=== PATIENT | female | born 1935 ===

== ENCOUNTER 2017-08-07 16:36 | Emergency (ER) | payer MEDICARE, MEDICAID ==
[2017-08-07 16:47] VITALS: BP 141/63; PULSE 76; RESP 16; TEMP 97.5; O2SAT 98
--- NOTE | 2017-08-07 18:13 | ED PDOC ---
HPI: Back Time Seen by Provider: 08/07/17 16:53 Chief Complaint (Nursing): Back Pain Chief Complaint (Provider): Back Pain History Per: Patient History/Exam Limitations: no limitations Onset/Duration Of Symptoms: Days (x4) Current Symptoms Are (Timing): Still Present Pain Scale Rating Of: 9 Additional Complaint(s): 81 y/o female with a past medical history of HTN and diabetes, who presents to the ED for evaluation of diffuse upper back pain, b/l shoulder pain, and neck pain x4 days. States pain began Monday. Denies any recent falls or trauma, and states the pain has gradually been worsening. Reports back in June of this year, she fell in the snow and was evaluated for left ankle pain and b/l knee pain at that time. States she was given Neurontin for her pain, as her imaging was all normal. Reports shes been taking Neurontin 600mg 3 times daily for her current pain in her back and neck without relief. States pain is worse with movement, sometimes radiates into the upper extremities, and is currently 9/10. States the pain hasnt been relieved by topical or home remedies as well. States she called her PMDs office, Dr. Ibarra, who advised she present to the ED for evaluation. Denies fever, cough, chest pain, recent travel, lower extremity swelling, calf pain, abdominal pain, vomiting, headache, or sick contacts. PMD: Dr. Ibarra Past Medical History Reviewed: Historical Data, Nursing Documentation, Vital Signs Vital Signs: Last Vital Signs Temp 97.5 F L 08/07/17 16:44 Pulse 76 08/07/17 16:44 Resp 16 08/07/17 16:44 BP 141/63 08/07/17 16:44 Pulse Ox 98 08/07/17 16:44 - Medical History PMH: Anxiety, Asthma, Bronchitis, CAD, COPD, Depression, Diabetes, Gastritis, HTN, Osteoporosis Denies: HIV, Chronic Kidney Disease - Surgical History Other surgeries: Left ankle, right knee - Family History Family History: States: Unknown Family Hx - Social History Current smoker - smoking cessation education provided: No Alcohol: None Drugs: Denies - Home Medications Home Medications: Ambulatory Orders Medication Instructions Recorded Ascorbic Acid [Vitamin C] 500 mg PO QPM 10/17/14 Biotin [Meribin] 5,000 mcg PO DAILY 10/17/14 Budesonide/Formoterol Fumarate 2 puff IH Q12H 10/17/14 [Symbicort 80-4.5 Mcg Inhaler] Cholecalciferol (Vitamin D3) 10,000 unit PO DAILY 10/17/14 [Maximum D3] Clopidogrel [Plavix] 75 mg PO DAILY 10/17/14 Conjugated Estrogens [Premarin] 0.625 mg PO HS 10/17/14 Cyanocobalamin [Vitamin B12] 5,000 mcg PO DAILY 10/17/14 Diclofenac Sodium [Voltaren Gel] 1 appl TOP QID PRN 10/17/14 Dorzolamide 2%/Timolol 0.5% 1 drop EACHEYE BID 10/17/14 [Cosopt 2%-0.5% Opht] Esomeprazole Magnesium [Nexium] 40 mg PO DAILY 10/17/14 Fluticasone Propionate [Flonase] 1 spray SUSAN BID PRN 10/17/14 Glimepiride 1 mg PO DAILY 10/17/14 Hydrochlorothiazide/Valsarta 1 tab PO DAILY 10/17/14 [Diovan Hct 12.5 mg-80 mg] Levocetirizine Dihydrochlori 5 mg PO DAILY 10/17/14 [Xyzal] Levothyroxine [Synthroid] 25 mg PO MWF 10/17/14 Montelukast [Singulair] 10 mg PO DAILY 10/17/14 Multivitamin/Iron/Folic Acid 1 tab PO QPM 10/17/14 [Centrum Complete Multivit Tab] Oxycodone HCl/Acetaminophen 1 tab PO Q4H PRN 10/17/14 [Percocet 5-325 mg Tablet] Polyethylene Glycol 3350 [Miralax] 17 gm PO DAILY PRN 10/17/14 Zolpidem Tartrate [Ambien] 10 mg PO HS PRN 10/17/14 Levofloxacin [Levaquin] 500 mg PO DAILY 10/22/14 predniSONE [predniSONE Tab] 5 mg PO DAILY #21 tab 10/24/14 - Allergies Allergies/Adverse Reactions: Allergies Allergy/AdvReac Type Severity Reaction Status Date / Time aspirin Allergy RASH Verified 08/07/17 17:40 metformin Allergy RASH Verified 08/07/17 17:40 Tetanus Vaccines and Toxoid Allergy RASH Verified 08/07/17 17:40 Review of Systems ROS Statement: Except As Marked, All Systems Reviewed And Found Negative Constitutional: Negative for: Fever Cardiovascular: Negative for: Chest Pain Respiratory: Negative for: Cough Musculoskeletal: Positive for: Neck Pain, Shoulder Pain, Back Pain Physical Exam - Reviewed Nursing Documentation Reviewed: Yes Vital Signs Reviewed: Yes - Physical Exam Comments: GENERAL APPEARANCE: Patient is awake, alert, oriented x 3, in no acute distress , and ambulatory in ED with cane. SKIN: Warm, dry; (-) cyanosis. EYES: (-) conjunctival pallor. ENMT: Mucous membranes moist. NECK: Supple (+) midline tenderness to cervical spine, decreased ROM secondary to pain CHEST AND RESPIRATORY: (-) rales, (-) rhonchi, (-) wheezes; breath sounds equal bilaterally. HEART AND CARDIOVASCULAR: (-) irregularity; (-) murmur, (-) gallop. ABDOMEN AND GI: Soft; (-) tenderness; (-) palpable mass. BACK: (+) diffuse bilateral parathoracic tenderness, (+) diffuse bilateral posterior shoulder tenderness, (+) diffuse bilateral trapezius tenderness, (-) direct bony tenderness, (-) deformity. EXTREMITIES: (-) deformity. Distal pulses good bilaterally. NEURO AND PSYCH: Mental status as above. Intact sensation bilaterally; leave coordinator strength is equal. Cerebellar tests intact. community affairs manager grossly intact. - ECG O2 Sat by Pulse Oximetry: 98 (RA) Pulse Ox Interpretation: Normal Medical Decision Making Medical Decision Making: Time: 17:46 Initial Impression: Acute neck and back pain Plan: --Spoke with Dr. Ibarra on the phone, who states he will come see the patient in the ED within the next [address] of the neck in the meantime. --Cervical Spine CT --EKG --CXR --Ultram 50mg PO --Reevaluation --EKG: sinus rhythm 70 bpm, occasional PVC, no ST elevations, QTc 423. Time: 18:50 CXR: NAD as read by Jazzmine ALEXANDRA and Dr Ibarra CT reviewed, radiology report follows PROCEDURE: CT scan of the cervical spine dated 08/07/2017 HISTORY: Neck and back pain. COMPARISON: Comparison made with prior CT scan of the cervical spine 07/03/2013 TECHNIQUE: contiguous helical/ transaxial computed tomography images were obtained of the cervical spine without the use of intravenous contrast. Coronal and sagittal reformatted images were created and reviewed. Radiation dose: Total exam DLP = 535.96 mGy-cm. This CT exam was performed using one or more of the following dose reduction techniques: Automated exposure control, adjustment of the mA and/or kV according to patient size, and/or use of iterative reconstruction technique. FINDINGS: VERTEBRAE: No evidence of acute displaced fracture nor dislocation. The osseous structures intact. . There is slight anterior subluxation C6 over C7. Straightening of the normal cervical lordosis also noted which may be due to patient positioning in the gantry however underlying element of muscle spasm may contribute bold DISCS/SPINAL CANAL/NEURAL FORAMINA: Mild multilevel degenerative spondylosis of the cervical spine again noted. At the C2-C3 level, there is relatively adequate disc height. No disc herniation or significant disc bulge. The facets are slightly prominent. Central canal and exit foramina adequate. At the C3-C4 level, there is disc space narrowing more so along the anterior disc margin. Small osteophytic ridge disc bulge complex some minimally flattens the ventral surface of the thecal sac though does not appear to cause significant canal compromise nor cord compression. Exit foramina appear marginal to slightly narrowed. At the C4-C5 level, there is relatively adequate disc height. Small central and bilateral disc bulge indents the ventral surface of the thecal sac. Central canal is marginal. There may be some minimal flattening of the ventral surface of the thecal sac. Mild degenerative squaring of the uncovertebral joints. Facets also slightly overgrown. Exit foramina appear adequate. At the C5-C6 level, there is adequate disc height. No disc herniation or significant disc bulge. The facet joints are slightly hypertrophic. Central canal and exit foramina appear adequate. At the C6-C7 level, there is disc space narrowing with small central and bilateral osteophytic ridge disc bulge complex that also appears to flatten the ventral surface of the thecal sac and may reach the ventral surface of the cord. Central canal appears adequate. Exit foramina are narrowed on the right and adequate on the left due to mild hypertrophic uncovertebral and facet joints. Slight anterior subluxation C6 over C7 PARASPINAL SOFT TISSUES: Unremarkable. OTHER FINDINGS: None. IMPRESSION: Unremarkable CT of the cervical spine. Time: 18:57 Dr. Ibarra at bedside. Time: 20:[address] Ibarra, patient stable for discharge. Dr Ibarra states he will give patient Rx for pain and to have her follow up outpatient. Dr Ibarra states no further intervention is needed in ED setting. On re-evaluation, patient reports improvement of symptoms. On exam, patient remains AAOx3, in no acute distress. Lungs clear to auscultation, cardiac RRR, abdomen soft, non-tender, repeat neuro exam shows no focal findings. VSS. Lab/Diagnostic results d/w the patient in great detail. Diagnosis of acute neck and back pain, radicular pain, DJD d/w the patient. Based on history, exam and diagnostic results, plan will be for outpatient follow up. Patient instructed to follow-up with pmd / referral provided / the clinic in 1- 2 days without fail. Advised to take medication as prescribed from PMD. Return to the emergency room at any time for any new or worsening symptoms. Patient states she fully agrees with and understands discharge instructions. States that she agrees with the plan and disposition. Verbalized and repeated discharge instructions and plan. I have given the patient opportunity to ask any additional questions. Scribe Attestation: Documented by Poli Carmona, acting as a scribe for Aicha Dover PA-C. Provider Scribe Attestation: All medical record entries made by the Scribe were at my direction and personally dictated by me. I have reviewed the chart and agree that the record accurately reflects my personal performance of the history, physical exam, medical decision making, and the department course for this patient. I have also personally directed, reviewed, and agree with the discharge instructions and disposition. Disposition - Clinical Impression Clinical Impression: Back pain, Neck pain, Radicular pain, Degenerative cervical disc - Patient ED Disposition Is Patient to be Admitted: No Counseled Patient/Family Regarding: Studies Performed, Diagnosis, Need For Followup - Disposition Referrals: Aldo Ibarra MD [Family Provider] - Disposition: Routine/Home Disposition Time: 20:13 Condition: STABLE Instructions: Degenerative Disc Disease, Radiculopathy, Neck Pain, Upper Back Pain Forms: [facility] (Hebrew) Print Language: SAUDI ARABIAN
--- NOTE | 2017-08-07 18:48 | CT ---
PROCEDURE: CT scan of the cervical spine dated 08/07/2017 HISTORY: Neck and back pain. COMPARISON: Comparison made with prior CT scan of the cervical spine 07/03/2013 TECHNIQUE: contiguous helical/ transaxial computed tomography images were obtained of the cervical spine without the use of intravenous contrast. Coronal and sagittal reformatted images were created and reviewed. Radiation dose: Total exam DLP = 535.96 mGy-cm. This CT exam was performed using one or more of the following dose reduction techniques: Automated exposure control, adjustment of the mA and/or kV according to patient size, and/or use of iterative reconstruction technique. FINDINGS: VERTEBRAE: No evidence of acute displaced fracture nor dislocation. The osseous structures intact. . There is slight anterior subluxation C6 over C7. Straightening of the normal cervical lordosis also noted which may be due to patient positioning in the gantry however underlying element of muscle spasm may contribute bold DISCS/SPINAL CANAL/NEURAL FORAMINA: Mild multilevel degenerative spondylosis of the cervical spine again noted. At the C2-C3 level, there is relatively adequate disc height. No disc herniation or significant disc bulge. The facets are slightly prominent. Central canal and exit foramina adequate. At the C3-C4 level, there is disc space narrowing more so along the anterior disc margin. Small osteophytic ridge disc bulge complex some minimally flattens the ventral surface of the thecal sac though does not appear to cause significant canal compromise nor cord compression. Exit foramina appear marginal to slightly narrowed. At the C4-C5 level, there is relatively adequate disc height. Small central and bilateral disc bulge indents the ventral surface of the thecal sac. Central canal is marginal. There may be some minimal flattening of the ventral surface of the thecal sac. Mild degenerative squaring of the uncovertebral joints. Facets also slightly overgrown. Exit foramina appear adequate. At the C5-C6 level, there is adequate disc height. No disc herniation or significant disc bulge. The facet joints are slightly hypertrophic. Central canal and exit foramina appear adequate. At the C6-C7 level, there is disc space narrowing with small central and bilateral osteophytic ridge disc bulge complex that also appears to flatten the ventral surface of the thecal sac and may reach the ventral surface of the cord. Central canal appears adequate. Exit foramina are narrowed on the right and adequate on the left due to mild hypertrophic uncovertebral and facet joints. Slight anterior subluxation C6 over C7 PARASPINAL SOFT TISSUES: Unremarkable. OTHER FINDINGS: None. IMPRESSION: Unremarkable CT of the cervical spine.
--- NOTE | 2017-08-08 08:32 | RAD ---
HISTORY: COMPARISON: 10/17/2014. TECHNIQUE: Chest PA and lateral FINDINGS: LINES AND TUBES: None. LUNG AND PLEURA: The lungs are well inflated and clear. HEART AND MEDIASTINUM: The heart size is top normal. The hilar and mediastinal contours are within normal limits. SKELETAL STRUCTURES: The bony structures are within normal limits for the patient's age. VISUALIZED UPPER ABDOMEN: Normal. OTHER FINDINGS: None. IMPRESSION: No active pulmonary disease.
--- NOTE | 2017-08-08 11:43 | CARD ---
APPROVED REPORT EKG Measurement Heart [id number] HI [id number] <Conclusion> Sinus rhythm with occasional premature ventricular complexes Possible Left atrial enlargement Left ventricular hypertrophy Abnormal ECG
== END 2017-08-07 20:45 | disposition home or self-care (01) ==
LOC: H.ER 16:36
DX: M54.9 Dorsalgia, unspecified (principal); M54.2 Cervicalgia; M81.0 Age-related osteoporosis without current pathological fracture; I25.10 Atherosclerotic heart disease of native coronary artery without angina pectoris; E11.9 Type 2 diabetes mellitus without complications; I49.3 Ventricular premature depolarization

== ENCOUNTER 2018-07-09 00:23 | Emergency (ER) | payer MEDICARE, MEDICAID ==
[2018-07-09 00:45] VITALS: RESP 18
[2018-07-09] MEDS ORDERED: Sodium Chloride 0.9% 1,000 ML IV STA (01:04)
--- NOTE | 2018-07-09 01:55 | ED PDOC ---
HPI: Abdomen Time Seen by Provider: 07/09/18 00:40 Chief Complaint (Nursing): GI Problem Chief Complaint (Provider): GI Problem History Per: Patient History/Exam Limitations: no limitations Additional Complaint(s): 82 y/o female with history of COPD, HTN, diabetes, hypothyroidism and carotid stenosis presents to the ED complaining of subjective fever associated with nausea, vomiting and headache, onset x1 day ago. Patient was seen on Monday at [facility] and was diagnosed with right ear otitis media. Patient was discharged with Amoxicillin however she reports that made her vomit and feel dizzy. Patient was then given Clindomycin but she still had nausea, vomiting, body aches. Patient states she has additionally developed headache and right-sided facial pain. Past Medical History Reviewed: Historical Data, Nursing Documentation, Vital Signs Vital Signs: Last Vital Signs Temp 98 F 07/09/18 00:36 Pulse 80 07/09/18 00:36 Resp 18 07/09/18 00:36 BP 108/50 L 07/09/18 00:36 Pulse Ox 99 07/09/18 00:36 - Medical History PMH: Anxiety, Asthma, Bronchitis, CAD, COPD, Depression, Diabetes, Gastritis, HTN, Hypothyroidism, Osteoporosis Denies: HIV, Chronic Kidney Disease - Surgical History Surgical History: Back Surgery Other surgeries: Knee surgery - Family History Family History: States: Unknown Family Hx - Home Medications Home Medications: Ambulatory Orders Medication Instructions Recorded Ascorbic Acid [Vitamin C] 500 mg PO QPM 10/17/14 Biotin [Meribin] 5,000 mcg PO DAILY 10/17/14 Budesonide/Formoterol Fumarate 2 puff IH Q12H 10/17/14 [Symbicort 80-4.5 Mcg Inhaler] Cholecalciferol (Vitamin D3) 10,000 unit PO DAILY 10/17/14 [Maximum D3] Clopidogrel [Plavix] 75 mg PO DAILY 10/17/14 Conjugated Estrogens [Premarin] 0.625 mg PO HS 10/17/14 Cyanocobalamin [Vitamin B12] 5,000 mcg PO DAILY 10/17/14 Diclofenac Sodium [Voltaren Gel] 1 appl TOP QID PRN 10/17/14 Dorzolamide 2%/Timolol 0.5% 1 drop EACHEYE BID 10/17/14 [Cosopt 2%-0.5% Opht] Esomeprazole Magnesium [Nexium] 40 mg PO DAILY 10/17/14 Fluticasone Propionate [Flonase] 1 spray SUSAN BID PRN 10/17/14 Glimepiride 1 mg PO DAILY 10/17/14 Hydrochlorothiazide/Valsarta 1 tab PO DAILY 10/17/14 [Diovan Hct 12.5 mg-80 mg] Levocetirizine Dihydrochlori 5 mg PO DAILY 10/17/14 [Xyzal] Levothyroxine [Synthroid] 25 mg PO MWF 10/17/14 Montelukast [Singulair] 10 mg PO DAILY 10/17/14 Multivitamin/Iron/Folic Acid 1 tab PO QPM 10/17/14 [Centrum Complete Multivit Tab] Oxycodone HCl/Acetaminophen 1 tab PO Q4H PRN 10/17/14 [Percocet 5-325 mg Tablet] Polyethylene Glycol 3350 [Miralax] 17 gm PO DAILY PRN 10/17/14 Zolpidem Tartrate [Ambien] 10 mg PO HS PRN 10/17/14 Levofloxacin [Levaquin] 500 mg PO DAILY 10/22/14 predniSONE [predniSONE Tab] 5 mg PO DAILY #21 tab 10/24/14 - Allergies Allergies/Adverse Reactions: Allergies Allergy/AdvReac Type Severity Reaction Status Date / Time acetaminophen [From Tylenol] Allergy RASH Verified 07/09/18 00:36 aspirin Allergy RASH Verified 08/07/17 17:40 metformin Allergy RASH Verified 08/07/17 17:40 Tetanus Vaccines and Toxoid Allergy RASH Verified 08/07/17 17:40 Review of Systems ROS Statement: Except As Marked, All Systems Reviewed And Found Negative Constitutional: Positive for: Fever Gastrointestinal: Positive for: Nausea, Vomiting Musculoskeletal: Positive for: Other (Facial pain) Neurological: Positive for: Headache, Dizziness Physical Exam - Reviewed Nursing Documentation Reviewed: Yes Vital Signs Reviewed: Yes - Physical Exam Appears: Positive for: Well, Non-toxic, No Acute Distress Head Exam: Positive for: ATRAUMATIC, NORMAL INSPECTION, NORMOCEPHALIC Skin: Positive for: Normal Color, Warm, DRY Eye Exam: Positive for: EOMI, Normal appearance, PERRL ENT: Positive for: TM Is/Are (Right ear has slight fluid; difficult to visualize TM) Neck: Positive for: Normal, Painless ROM Cardiovascular/Chest: Positive for: Regular Rate, Rhythm. Negative for: Murmur Respiratory: Positive for: Normal Breath Sounds. Negative for: Respiratory Distress Gastrointestinal/Abdominal: Positive for: Normal Exam, Soft. Negative for: Tenderness Back: Positive for: Normal Inspection Extremity: Positive for: Normal ROM. Negative for: Pedal Edema, Deformity Neurologic/Psych: Positive for: Alert, Oriented. Negative for: Motor/Sensory Deficits - Laboratory Results Result Diagrams: 07/09/18 02:20 07/09/18 02:20 - ECG O2 Sat by Pulse Oximetry: 99 (RA) Pulse Ox Interpretation: Normal Medical Decision Making Medical Decision Making: Time: 01:04 Initial Impression: Fever and body aches with vomiting Initial Plan: * Labs * IV Fluids 01:48 Ordered Motrin 600 mg and Rocephin 1 gm 02:15 Patient reports she is allergic to Tylenol and Motrin. Discontinued Motrin order. 03:41 CT Head Normal size of the ventricles and extra-axial spaces for the patient's age. Normal white matter tracts of the supratentorial brain. Normal basal ganglia and thalami. Normal brainstem. Normal cerebellum. There is no demonstrated extra-axial, intraparenchymal, or intraventricular hemorrhage. There are no findings of an acute ischemic infarction. Normal calvarium. There is no demonstrated fracture. Normal soft tissue structures. Normal visualized paranasal sinuses. IMPRESSION: Normal unenhanced CT scan of the brain. 03:[address] were normal. Patient's vitals normalized. Gave patient a dose of antibiotics. Stable for discharge home. 03:57 On reevaluation patient reports feeling much better. However, she still reports pain behind her ear. Will order mastoid CT. 04:40 CT IAC Findings: Normal aeration of the middle ear cavities and mastoid air cells. No evidence of mastoid effusion or erosive changes. No soft tissue changes a fluid collection. Unremarkable internal auditory canals. Unremarkable medial ossicles. Impression: No CT evidence of mastoiditis. --------- -------- Scribe Attestation: Documented by Ruben Childers acting as a scribe for Willam Ramos MD. Provider Scribe Attestation: All medical record entries made by the Scribe were at my direction and personally dictated by me. I have reviewed the chart and agree that the record accurately reflects my personal performance of the history, physical exam, medical decision making, and the department course for this patient. I have also personally directed, reviewed, and agree with the discharge instructions and disposition. Disposition - Clinical Impression Clinical Impression: Otitis media - Patient ED Disposition Is Patient to be Admitted: No - Disposition Disposition: Routine/Home Disposition Time: 03:47 Condition: IMPROVED Additional Instructions: follow up with your primary doctor in 1-2 days return to the ED with any worsening or concerning symptoms Instructions: Ear Infections (Otitis Media) (DC) Forms: [employer] (Sami)
[2018-07-09] MEDS ORDERED: cefTRIAXone (Rocephin) 1 gm Inj ONE (02:29)
[2018-07-09 02:35] LABS: BASO % 0.6 % (0.0-2.0); EOS # 0.1 K/uL (0.0-0.7); EOS % 1.8 % (0.0-4.0); HEMOGLOBIN 12.6 g/dL (12.0-16.0); LYMPH % 53.6 % (20.0-40.0); MEAN CELL VOLUME 93.3 fl (81.0-99.0); MEAN CORPUSCULAR HGB CONC 32.1 g/dL (33.0-37.0); MEAN PLATELET VOLUME 10.1 fl (7.2-11.7); MONO # 0.5 K/uL (0.0-0.8); NEUT # 2.7 K/uL (1.8-7.0); NRBC % 0.1 % (0.0-0.0); RBC 4.19 Mil/uL (3.80-5.20); RED CELL DISTRIBUTION WIDTH 12.8 % (11.5-14.5); WHITE BLOOD COUNT 7.4 K/uL (4.8-10.8)
[2018-07-09 02:43] LABS: ALBUMIN 3.6 g/dL (3.5-5.0); ALT/SGPT 16 U/L (9-52); AST/SGOT 23 U/L (14-36); BLOOD UREA NITROGEN 12 mg/dl (7-17); CALCIUM 9.6 mg/dL (8.4-10.2); GFR NON-AFRICAN AMERICAN > 60
[2018-07-09 04:21] VITALS: BP 142/77; PULSE 76; TEMP 98.4
[2018-07-09 04:44] VITALS: O2SAT 99
--- NOTE | 2018-07-09 10:23 | CT ---
Date of service: 07/09/2018 PROCEDURE: CT OF THE TEMPORAL BONES WITHOUT CONTRAST HISTORY: rule out r sided mastoiditis COMPARISON: None available. TECHNIQUE: High resolution axial images of the temporal bones were obtained. Coronal and sagittal reformats were generated. Radiation dose: Total exam DLP = 580.45 mGy-cm. This CT exam was performed using one or more of the following dose reduction techniques: Automated exposure control, adjustment of the mA and/or kV according to patient size, and/or use of iterative reconstruction technique. FINDINGS: RIGHT TEMPORAL BONE: RIGHT MIDDLE EAR: Normal. RIGHT INNER EAR: Cochlea: Normal. Semicircular canals: Normal. RIGHT MASTOID AIR CELLS: Normal. RIGHT INTERNAL AUDITORY CANAL: Normal. RIGHT EXTERNAL AUDITORY CANAL: Normal. RIGHT VESTIBULAR AND COCHLEAR AQUEDUCT: Normal. OTHER FINDINGS: None. LEFT TEMPORAL BONE: LEFT MIDDLE EAR: Normal. LEFT INNER EAR: Cochlea: Normal. Semicircular canals: Normal. LEFT MASTOID AIR CELLS: Multiple confluent air cells are seen at the left mastoid air cell complex is may reflect prior mastoiditis now resolved. No definite abnormal opacification appreciated at this time. LEFT INTERNAL AUDITORY CANAL: Normal. LEFT EXTERNAL AUDITORY CANAL: Normal. LEFT VESTIBULAR AND COCHLEAR AQUEDUCTS: Normal. OTHER FINDINGS: None. IMPRESSION: Unremarkable temporal bone CT focusing on the right hoahaoism bone complex. No CT evidence of right mastoiditis/effusions. Healed prior left mastoiditis or other infectious/inflammatory process in question though no abnormal opacification is appreciated at this time. Please see discussion above. Concordant preliminary report from [facility], 07/09/2018 4:40 a.m..
--- NOTE | 2018-07-09 11:17 | CT ---
Date of service: 07/09/2018 PROCEDURE: CT HEAD WITHOUT CONTRAST. HISTORY: headache COMPARISON: Head CT without contrast 10/22/2014. TECHNIQUE: Axial computed tomography images were obtained through the head/brain without intravenous contrast. Radiation dose: Total exam DLP = 811.15 mGy-cm. This CT exam was performed using one or more of the following dose reduction techniques: Automated exposure control, adjustment of the mA and/or kV according to patient size, and/or use of iterative reconstruction technique. FINDINGS: HEMORRHAGE: No intracranial hemorrhage. BRAIN: Good corticomedullary differentiation is seen. Reiterated diffuse cerebral atrophy and chronic microangiopathy. No suspicious extra-axial fluid collection is identified and the midline brain anatomy appears grossly nonfocal as imaged. No mass effect identified. VENTRICLES: Unremarkable. No hydrocephalus. CALVARIUM: Unremarkable. PARANASAL SINUSES: Unremarkable as visualized. No significant inflammatory changes. MASTOID AIR CELLS: Unremarkable as visualized. No inflammatory changes. OTHER FINDINGS: None. IMPRESSION: Stable age related neuro degenerative change are identified without acute intracranial findings as per above. No significant change 10/22/[address] Concordant preliminary report from [facility], 07/19/2018, 3:41 a.m..
== END 2018-07-09 06:28 | disposition home or self-care (01) ==
LOC: H.ER 00:23
DX: H66.90 Otitis media, unspecified, unspecified ear (principal); R42 Dizziness and giddiness; E03.9 Hypothyroidism, unspecified; E11.9 Type 2 diabetes mellitus without complications; I10 Essential (primary) hypertension; I25.10 Atherosclerotic heart disease of native coronary artery without angina pectoris; Z88.6 Allergy status to analgesic agent
CPT/HCPCS: 70450; 70480; 80053; 85025; 96360; 99283; J0696; J7030

== ENCOUNTER 2018-08-12 21:05 | Emergency (ER) | payer MEDICARE, MEDICAID ==
[2018-08-12 21:08] VITALS: BMI 29.7
[2018-08-12 21:11] VITALS: BP 167/94; PULSE 86; RESP 18; TEMP 98.4; O2SAT 98
--- NOTE | 2018-08-12 21:43 | ED PDOC ---
HPI: General Adult Time Seen by Provider: 08/12/18 21:15 Chief Complaint (Nursing): Pain, Chronic Chief Complaint (Provider): Chronic body pain History Per: Patient, [employer] (jhoan #[id number]) History/Exam Limitations: no limitations Onset/Duration Of Symptoms: Persistent Current Symptoms Are (Timing): Still Present Additional Complaint(s): 82 year old female with a past medical history of chronic body pain presents to the ED ambulatory with a cane for evaluation of chronic pain to all joints. Patient states that she has had this pain for multiple years since having spinal and joint surgery (multiple procedures performed) several years ago. Patient reports taking tylenol daily for the pain, but had to stop recently as she thinks she developed an allergy to it when she started having rashes (which have already resolved). Patient presents to the ED requesting pain medication, but states that pain medications make her feels worse, and wants an injection as th at is the only thing that helps. Patient denies going to her PMD for this complaint. Patient was seem in the ED 1x year ago for the same complaint by this provider. Otherwise: (-) other complaints. PMD: Aldo Ibarra. Past Medical History Reviewed: Historical Data, Nursing Documentation, Vital Signs Vital Signs: Last Vital Signs Temp 98.4 F 08/12/18 21:08 Pulse 86 08/12/18 21:08 Resp 18 08/12/18 21:08 BP 167/94 H 08/12/18 21:08 Pulse Ox 98 08/12/18 21:08 COLETTE Report Viewed: Yes - Medical History PMH: Anxiety, Asthma, Bronchitis, CAD, COPD, Depression, Diabetes, Gastritis, HTN, Hypothyroidism, Osteoporosis, Chronic Pain (all over joints) - Surgical History Surgical History: Back Surgery (spinal and joint surgery) - Family History Family History: States: No Known Family Hx - Home Medications Home Medications: Ambulatory Orders Medication Instructions Recorded Ascorbic Acid [Vitamin C] 500 mg PO QPM 10/17/14 Biotin [Meribin] 5,000 mcg PO DAILY 10/17/14 Budesonide/Formoterol Fumarate 2 puff IH Q12H 10/17/14 [Symbicort 80-4.5 Mcg Inhaler] Cholecalciferol (Vitamin D3) 10,000 unit PO DAILY 10/17/14 [Maximum D3] Clopidogrel [Plavix] 75 mg PO DAILY 10/17/14 Conjugated Estrogens [Premarin] 0.625 mg PO HS 10/17/14 Cyanocobalamin [Vitamin B12] 5,000 mcg PO DAILY 10/17/14 Diclofenac Sodium [Voltaren Gel] 1 appl TOP QID PRN 10/17/14 Dorzolamide 2%/Timolol 0.5% 1 drop EACHEYE BID 10/17/14 [Cosopt 2%-0.5% Opht] Esomeprazole Magnesium [Nexium] 40 mg PO DAILY 10/17/14 Fluticasone Propionate [Flonase] 1 spray SUSAN BID PRN 10/17/14 Glimepiride 1 mg PO DAILY 10/17/14 Hydrochlorothiazide/Valsarta 1 tab PO DAILY 10/17/14 [Diovan Hct 12.5 mg-80 mg] Levocetirizine Dihydrochlori 5 mg PO DAILY 10/17/14 [Xyzal] Levothyroxine [Synthroid] 25 mg PO MWF 10/17/14 Montelukast [Singulair] 10 mg PO DAILY 10/17/14 Multivitamin/Iron/Folic Acid 1 tab PO QPM 10/17/14 [Centrum Complete Multivit Tab] Oxycodone HCl/Acetaminophen 1 tab PO Q4H PRN 10/17/14 [Percocet 5-325 mg Tablet] Polyethylene Glycol 3350 [Miralax] 17 gm PO DAILY PRN 10/17/14 Zolpidem Tartrate [Ambien] 10 mg PO HS PRN 10/17/14 Levofloxacin [Levaquin] 500 mg PO DAILY 10/22/14 predniSONE [predniSONE Tab] 5 mg PO DAILY #21 tab 10/24/14 - Allergies Allergies/Adverse Reactions: Allergies Allergy/AdvReac Type Severity Reaction Status Date / Time acetaminophen [From Tylenol] Allergy RASH Verified 08/12/18 21:08 aspirin Allergy RASH Verified 08/12/18 21:08 metformin Allergy RASH Verified 08/12/18 21:08 Tetanus Vaccines and Toxoid Allergy RASH Verified 08/12/18 21:08 Review of Systems ROS Statement: Except As Marked, All Systems Reviewed And Found Negative Musculoskeletal: Positive for: Other (all over joint pain) Physical Exam - Reviewed Nursing Documentation Reviewed: Yes Vital Signs Reviewed: Yes - Physical Exam Comments: GENERAL APPEARANCE: Patient is awake, alert, oriented x 3, in no acute distress. Ambulating in ED with a cane. ENMT: Mucous membranes moist. Airway patent: (-) stridor. NECK: Supple RESPIRATORY: Respirations even and nonlabored. - ECG O2 Sat by Pulse Oximetry: 98 (RA) Pulse Ox Interpretation: Normal Medical Decision Making Medical Decision Makin:15 Clinical impression: 82 year old female with chronic pain Patient refusing physical exam. Upon discussion with patient about limited options for pain control given allergies and age, patient got agitated and walked out of exam room and ED. Physical exam not performed as patient left the ED. Conversation with patient witnessed by ED RN Sola. Scribe Attestation: Documented by Aicha Ugarte, acting as a scribe for Aicha Aleman Provider Scribe Attestation: All medical record entries made by the Scribe were at my direction and personally dictated by me. I have reviewed the chart and agree that the record accurately reflects my personal performance of the history, physical exam, medical decision making, and the department course for this patient. I have also personally directed, reviewed, and agree with the discharge instructions and disposition. Disposition - Clinical Impression Clinical Impression: Chronic pain - Patient ED Disposition Is Patient to be Admitted: No - Disposition Disposition: Left W/O Treatment Disposition Time: 21:30 Condition: UNKNOWN - POA Present On Arrival: None
== END 2018-08-12 22:15 | disposition home or self-care (01) ==
LOC: H.ER 21:05
DX: M81.0 Age-related osteoporosis without current pathological fracture (principal); G89.29 Other chronic pain; Z86.59 Personal history of other mental and behavioral disorders; E11.9 Type 2 diabetes mellitus without complications; I10 Essential (primary) hypertension; J44.9 Chronic obstructive pulmonary disease, unspecified; Z88.6 Allergy status to analgesic agent; I25.10 Atherosclerotic heart disease of native coronary artery without angina pectoris; E03.9 Hypothyroidism, unspecified